=== PATIENT | female | born 1975 | race African-American/Black ===

== ENCOUNTER 2017-10-30 14:57 | Outpatient (CLI) | payer BC | END 2017-10-30 14:58 | disposition home or self-care (01) | LOC: BICMAMMO 14:57 | PROVIDERS: ATTEND Family Medicine | DX: Z12.31 Encounter for screening mammogram for malignant neoplasm of breast (principal); Z80.3 Family history of malignant neoplasm of breast; N64.89 Other specified disorders of breast | CPT/HCPCS: 77063; 77067 ==

== ENCOUNTER 2017-11-06 16:32 | Outpatient (CLI) | payer BC | END 2017-11-06 16:33 | disposition home or self-care (01) | LOC: BICRAD 16:32 | PROVIDERS: ATTEND Internal Medicine Rheumatology | DX: M19.071 Primary osteoarthritis, right ankle and foot (principal); M19.072 Primary osteoarthritis, left ankle and foot; M77.32 Calcaneal spur, left foot ==

== ENCOUNTER 2017-11-08 09:40 | Outpatient (CLI) | payer BC | END 2017-11-08 09:41 | disposition home or self-care (01) | LOC: BICMAMMO 09:40 | PROVIDERS: ATTEND Family Medicine | DX: N63.20 Unspecified lump in the left breast, unspecified quadrant (principal); R92.8 Other abnormal and inconclusive findings on diagnostic imaging of breast | CPT/HCPCS: G0279 ==

== ENCOUNTER 2017-12-19 13:18 | Outpatient (CLI) | payer OTHER | END 2017-12-19 13:19 | disposition home or self-care (01) | LOC: DTY/OP 13:18 | PROVIDERS: ATTEND Specialist | DX: Z01.818 Encounter for other preprocedural examination (principal); E66.01 Morbid (severe) obesity due to excess calories | CPT/HCPCS: 97802 ==

== ENCOUNTER 2018-03-06 16:23 | Outpatient (CLI) | payer BC ==
[2018-03-06 17:59] LABS: BHCG - Serum Negative (NEGATIVE); Pregs Control Background? CLEAR/WHITE (CLR/WHITE); Pregs Control Bar Appear? YES (CONTROL BAR)
== END 2018-03-06 16:24 | disposition home or self-care (01) ==
LOC: LABBT 16:23
PROVIDERS: ATTEND Specialist
DX: Z01.818 Encounter for other preprocedural examination (principal); E66.01 Morbid (severe) obesity due to excess calories
CPT/HCPCS: 84703; 93005; 93010

== ENCOUNTER 2018-03-07 11:15 | Inpatient (IN) | payer BC ==
[2018-03-06 16:39] VITALS: BMI 42.9
[2018-03-11] MEDS ORDERED: Ondansetron HCl/PF 4 MG/2 ML Vial ONE (07:19)
[2018-03-11] MEDS ORDERED: Glycopyrrolate 0.2 MG/ML 5 ML SYRINGE ONE (07:19)
[2018-03-11] MEDS ORDERED: PROPOFOL 200 MG/20 ML VIAL ONE (07:19)
[2018-03-11] MEDS ORDERED: Lidocaine 1% PF 5 ML VIAL ONE (07:19)
[2018-03-11] MEDS ORDERED: Ketorolac Tromethamine 30 MG/ML VIAL ONE (08:35)
[2018-03-11] MEDS ORDERED: Heparin 5,000 UNITS/ML VIAL ONE (08:36)
[2018-03-11] MEDS ORDERED: Scopolamine 1.5 mg/72 hour Patch ONE (08:36)
[2018-03-11] MEDS ORDERED: cefOXitin 2 GM in Sodium Chloride 0.9% 100 ML IVPB SCH (08:45)
[2018-03-11] MEDS ORDERED: Bupivacaine/Epinephrine 0.25% 30 ML VIAL ONE (09:10)
[2018-03-11] MEDS ORDERED: Fentanyl 250 MCG/5 ML VIAL ONE (09:12)
[2018-03-11] MEDS ORDERED: HYDROmorphone 0.5 MG/0.5 ML SYRINGE ONE (09:12)
[2018-03-11] MEDS ORDERED: Midazolam HCl 2 mg/2 ml Vial ONE (09:21)
[2018-03-11] MEDS ORDERED: Promethazine HCl 25 MG/ML VIAL ONE (11:14)
[2018-03-11] MEDS ORDERED: Promethazine HCl 25 MG/ML VIAL SLOW IVP PRN (11:14)
[2018-03-11] MEDS ORDERED: Promethazine HCl 25 MG/ML VIAL IM PRN ×2 (11:14→12:29)
[2018-03-11] MEDS ORDERED: HYDROmorphone 2 MG/ML VIAL SLOW IVP PRN (11:14)
[2018-03-11] MEDS ORDERED: Fentanyl 100 MCG/2 ML VIAL ONE (11:25)
--- NOTE | 2018-03-11 11:59 | OP ---
DATE OF PROCEDURE: 03/11/2018 PREOPERATIVE DIAGNOSIS: Morbid obesity. POSTOPERATIVE DIAGNOSIS: Morbid obesity. OPERATION PERFORMED: Laparoscopic sleeve gastrectomy using the ViSiGi device. SURGEON: Yrn Howard M.D. ANESTHESIA: General endotracheal. INDICATIONS: The patient is a 42-year-old morbidly obese black female. She has undergone preoperative evaluation and education and presents at this time for surgery. OPERATIVE PROCEDURE IN DETAIL: Informed consent was obtained. The patient was taken to the operating room where general endotracheal anesthesia was obtained with the patient in supine position. Abdomen was clipped of hair, prepped with ChloraPrep, and draped in sterile fashion. Local anesthetic was infiltrated using 0.25% Marcaine with epinephrine and a 5 mm supraumbilical incision was created through which a Veress needle was passed into the peritoneal cavity and pneumoperitoneum established using carbon dioxide up to a pressure of 15 mmHg. A 5 mm trocar port was passed through this same incision. Laparoscopic camera was passed through this port. Under direct vision, 4 additional laparoscopic ports were placed including bilateral subcostal 5 mm ports, a right paramedian 12 mm port, and a left paramedian 15 mm port. A 5 mm epigastric incision was created through which Nathansen retractor was passed into the abdominal cavity and used to retract the left lobe of the liver. The pylorus was identified. Beginning 5 cm proximal to the pylorus, the omental and vascular tissue was dissected away from the greater curvature of the stomach in an ascending fashion using the Ligasure device. Hemostasis was maintained. The short gastric vessels were divided in a similar fashion. Posterior gastric adhesions were divided as well. The angle of His was mobilized and the left iliana of the diaphragm was dissected as well. Once complete gastric mobilization was obtained, a 36 Indian Visigi was passed by Anesthesia through the stomach down to the level of the pylorus and placed to suction. This was used as a guide for the subsequent gastrectomy. The gastrectomy was performed using several firings of the Blain stapler, initially using a green load followed by a gold load and a series of blue loads to complete the resection. Great care was taken to avoid narrowing of the incisura or the gastroesophageal junction. Once the stomach was completely transected, the excised portion was removed through the 15 mm port site. The fascia was closed at that location using a vawxje-sl-pdjni suture of 0 Vicryl using a GraNee needle. The stomach was insufflated with the Visigi with no evidence of leak. The Visigi was then removed. The staple line was inspected for hemostasis. Hemostasis obtained using electrocautery and/or Hemoclips as necessary. All irrigant from within the abdomen was aspirated. The Nathansen retractor and all ports were removed under direct vision. Pneumoperitoneum was carefully evacuated. Quarter percent Marcaine with epinephrine was infiltrated in each port site and skin edges approximated with 4-0 Monocryl subcuticular suture. Dermabond was placed externally. There were no complications. The patient tolerated the procedure well and was taken to recovery room in stable condition. FINDINGS: The patient had some degree of a fatty liver, but this is clearly improved with a preoperative weight loss. There were no intra-abdominal adhesions or abnormal anatomy. There was essentially no blood loss during the course of the operation. There was some minor oozing along the staple line that was quickly controlled with application of Hemoclips. There was also some bleeding from the tip of the underside of the left lobe of the liver. This was controlled using combination of electrocautery and Chanell powder. There was no bleeding at the end of the case. There were no complications. The patient tolerated the procedure well and was taken to recovery in stable condition. MIRTA
[2018-03-11] MEDS ORDERED: Morphine 4 MG/ML Carpuject SLOW IVP PRN (12:29)
[2018-03-11] MEDS ORDERED: Dextrose 50% Abboject 50 ML SYRINGE SLOW IVP PRN (12:29)
[2018-03-11] MEDS ORDERED: Dextrose 5% in Water 1,000 ML IV PRN (12:29)
[2018-03-11] MEDS ORDERED: Insulin Regular 300 UNITS/3 ML VIAL SC PRN (12:29)
[2018-03-11] MEDS ORDERED: diphenhydrAMINE 50 MG/ML VIAL IVP PRN (12:29)
[2018-03-11] MEDS ORDERED: hydrALAZINE 20 MG/ML VIAL SLOW IVP PRN (12:29)
[2018-03-11] MEDS ORDERED: Morphine 4 MG/ML VIAL IV PRN ×2 (12:43→12:45)
[2018-03-11] MEDS: 1/2 NS w/KCL 20 mEq 1,000 ML IV SCH ×2 (13:52→20:27)
[2018-03-11] MEDS: Morphine 4 MG/ML VIAL IV PRN ×2 (13:53→20:16)
[2018-03-11] MEDS: Ondansetron HCl/PF 4 MG/2 ML Vial IVP PRN (16:01)
[2018-03-11] MEDS: Ketorolac Tromethamine 30 MG/ML VIAL IVP SCH (16:45)
[2018-03-11] MEDS ORDERED: Enoxaparin Sodium 40 MG/0.4 ML SYRINGE SC SCH (21:00)
[2018-03-12] MEDS: Ketorolac Tromethamine 30 MG/ML VIAL IVP SCH ×3 (00:01→12:31)
[2018-03-12] MEDS: Hydrocodone-Acetamin 15 ML UDCUP PO PRN ×3 (00:27→10:07)
[2018-03-12] MEDS: Ondansetron HCl/PF 4 MG/2 ML Vial IVP PRN (01:05)
[2018-03-12] MEDS: 1/2 NS w/KCL 20 mEq 1,000 ML IV SCH ×2 (05:43→12:32)
[2018-03-12 06:02] LABS: #Lymphocytes 0.9 thou/uL (1.20-3.40); #Monocytes 0.5 thou/uL (0.11-0.59); %Basophils 0.4 % (0.0-1.0); %Eosinophils 0.6 % (0.0-10.0); %Lymphocytes 20.2 % (21.0-51.0); %Monocytes 11.7 % (0.0-10.0); Mean Corpuscular HGB CONC 31.8 g/dL (32.0-36.0); Mean Corpuscular Hemoglobin 24.8 pg (27.0-31.0); Mean Corpuscular Volume 77.7 fl (81.0-99.0); Platelet Count 214 thou/uL (130-400); RBC Distribution Width 15.7 % (11.5-14.5); Red Blood Cell (RBC) Count 4.04 mill/uL (4.20-5.40); White Blood Cell (WBC) Count 4.5 thou/uL (4.8-10.8)
[2018-03-12 06:13] LABS: Anion Gap 8 mmol/L (10-20); BUN (Urea Nitrogen) 5 mg/dL (7.0-18.7); Calc. Creatinine Clearance 188 mL/min (70-130); Calcium 8.3 mg/dL (7.8-10.44); Carbon Dioxide 25 mmol/L (22-29); Chloride 106 mmol/L (98-107); Estimated GFR-MDRD Greater than 90; Glucose 109 mg/dL (70-105); Potassium 3.9 mmol/L (3.5-5.1); Sodium 135 mmol/L (136-145)
[2018-03-12 07:26] VITALS: BP 146/83
[2018-03-12] MEDS ORDERED: Pantoprazole 40 MG VIAL IVP SCH (09:00)
[2018-03-12] MEDS ORDERED: TACROLIMUS 0.1% TOP PRN (09:46)
[2018-03-12] MEDS ORDERED: Lorazepam 1 MG TAB PO PRN (09:48)
[2018-03-12] MEDS ORDERED: Fluocinonide 0.05% Ointment 15 gm Tube TOP PRN (09:51)
[2018-03-12] MEDS ORDERED: Fluticasone Propionate Nasal Spray 16 gm Bottle NASAL SCH (10:00)
[2018-03-12] MEDS ORDERED: Aspirin 81 mg Enteric Coated Tablet PO SCH (10:00)
[2018-03-12 11:59] VITALS: TEMP 98.9
--- NOTE | 2018-03-12 14:09 | DIS ---
DATE OF ADMISSION: 03/11/2018 DATE OF DISCHARGE: 03/12/2018 ADMISSION DIAGNOSIS: Morbid obesity. DISCHARGE DIAGNOSIS: Morbid obesity. PROCEDURES PERFORMED: Laparoscopic sleeve gastrectomy. SURGEON: Yrn Howard M.D. ADMISSION HISTORY: The patient is a 42-year-old black female. She has multiple medical problems inc luding Sjogren's syndrome, anxiety, and coagulation disorder. She has undergone extensive preoperati ve evaluation and education presents at this time for her weight loss surgery. HOSPITAL COURSE: She underwent uneventful surgery on the day of admission. On postoperative day #1, she had minimal complaints of pain. She was afebrile with normal vital signs. She tolerated her li quids and advance these appropriately in order to be discharged. Her laboratory studies revealed no significant abnormality. Her hemoglobin level was 10.0, down from 11.4. She was discharged home with instructions regarding, which of her medication she should continue. Kierra pimentel was given a prescription for hydrocodone elixir and instructed regarding dietary progression over t he next couple of weeks. She will remain on liquids during this time. She will follow up with edmund guerrero in 10-14 days.
[2018-03-12] MEDS ORDERED: metFORMIN 500 MG TAB PO SCH (17:00)
[2018-03-12] MEDS ORDERED: Colchicine 0.6 MG TAB PO SCH (21:00)
[2018-03-12] MEDS ORDERED: DULoxetine 60 MG CAP PO SCH (21:00)
[2018-03-12] MEDS ORDERED: Hydroxychloroquine Sulfate 200 MG TAB PO SCH (21:00)
[2018-03-12] MEDS ORDERED: EVOXAC PO SCH (21:00)
[2018-03-12] MEDS ORDERED: busPIRone HCl 10 MG TAB PO SCH (21:00)
[2018-03-12] MEDS ORDERED: traMADol HCl 50 MG TAB PO SCH (21:00)
[2018-03-12] MEDS ORDERED: Lisinopril 10 MG TAB PO SCH (21:00)
[2018-03-13] MEDS ORDERED: predniSONE 1 MG TAB PO SCH (09:00)
[2018-03-13] MEDS ORDERED: Amlodipine 5 MG TAB PO SCH (09:00)
[2018-03-13] MEDS ORDERED: Venlafaxine HCl 25 MG TAB PO SCH (09:00)
[2018-03-13] MEDS ORDERED: Rivaroxaban 10 MG TAB PO SCH (09:00)
[2018-03-15] MEDS ORDERED: Doxycycline 100 MG CAP PO SCH (09:00)
== END 2018-03-12 13:20 | disposition home or self-care (01) | DRG 620 ==
LOC: SURG A 03-11 07:57
PROVIDERS: ADMIT Specialist; ATTEND Specialist
PROC: 0DB64Z3 Excision of Stomach, Percutaneous Endoscopic Approach, Vertical (ICD-10-PCS; principal; 2018-03-11)
DX: E66.01 Morbid (severe) obesity due to excess calories (principal); D68.9 Coagulation defect, unspecified; Z68.41 Body mass index [BMI] 40.0-44.9, adult; K76.0 Fatty (change of) liver, not elsewhere classified; M35.00 Sjogren syndrome, unspecified; F41.9 Anxiety disorder, unspecified; Z79.899 Other long term (current) drug therapy; Z79.891 Long term (current) use of opiate analgesic; Z79.51 Long term (current) use of inhaled steroids; Z79.84 Long term (current) use of oral hypoglycemic drugs; Z79.01 Long term (current) use of anticoagulants; E11.9 Type 2 diabetes mellitus without complications; G47.33 Obstructive sleep apnea (adult) (pediatric); I10 Essential (primary) hypertension; M32.9 Systemic lupus erythematosus, unspecified; Z87.442 Personal history of urinary calculi; Z71.3 Dietary counseling and surveillance; M79.7 Fibromyalgia; Z91.012 Allergy to eggs; Z91.040 Latex allergy status; Z91.018 Allergy to other foods
CPT/HCPCS: 36415; 36416; 80048; 85025; 88307; 88312; 94760; C9113; J0131; J0694; J1170; J1644; J1650; J1815; J1885; J2001; J2250; J2270; J2405; J2550; J2704; J3010; J7050

== ENCOUNTER 2018-04-24 13:18 | Outpatient (CLI) | payer BC ==
--- NOTE | 2018-04-24 15:55 | RAD ---
UPPER GI: 04/24/18 HISTORY: Nausea. Abdominal pain. Vomiting. Recent bariatric surgery. FINDINGS: Single column contrast evaluation shows postoperative changes of the stomach consistent with recent b ariatric procedure. There is some delay in emptying of the distal esophagus to the stomach with large amount of gastroesophageal reflux apparent. No propulsive tertiary type contractions were visible. C ontrast immediately passed into the duodenum without obstruction. No extraluminal extension of contra st is apparent. Hemostasis clips are present throughout the upper mid abdomen from recent surgery. IMPRESSION: Bariatric surgical changes of the stomach. Large amount of gastroesophageal reflux with moderate tert iary contractions. No evidence of obstruction or leak. POS: [facility]
== END 2018-04-24 13:19 | disposition home or self-care (01) ==
LOC: RAD 13:18
PROVIDERS: ATTEND Specialist
DX: R11.0 Nausea (principal); K21.9 Gastro-esophageal reflux disease without esophagitis; Z98.890 Other specified postprocedural states
CPT/HCPCS: 74247

== ENCOUNTER 2018-06-20 12:57 | Emergency (ER) | payer BC ==
[2018-06-20 14:15] LABS: Bilirubin Negative (Negative); Blood, Urine Negative (Negative); Clarity Clear (Clear); Glucose, Urine (Dipstick) Negative (Negative); Leukocyte Negative (Negative); Nitrite Negative (Negative); Protein, Urine (Dipstick) 30 mg/dL (Neg-Trace); Urobilinogen 0.2 mg/dL (0.2-1.0)
[2018-06-20 14:18] LABS: Specific Gravity, Urine 1.018 (1.002-1.036)
[2018-06-20 14:20] LABS: Pregnancy Test - Urine (BHCG) Negative (Negative); Pregu Control Background? CLEAR/WHITE (CLR/WHITE); Pregu Control Bar Appear? YES (CONTROL BAR); Specific Gravity 1.018 (1.002-1.036)
[2018-06-20 14:26] LABS: Amphetamine Not Detected (NotDetected); Barbiturates Screen Not Detected (NotDetected); Benzodiazepine Screen Detected (NotDetected); Cocaine Metabolite Screen Not Detected (NotDetected); Medtox Control Line Valid? VALID (VALID); Methadone Not Detected (NotDetected); Methamphetamine Not Detected (NotDetected); Opiate Screen Not Detected (NotDetected); Oxycodone Screen Not Detected (NotDetected); Phencyclidine (PCP) Not Detected (NotDetected); THC/Cannabinoid Screen Not Detected (NotDetected); Tricyclic Screen Not Detected (NotDetected)
[2018-06-20 14:30] LABS: RBC/HPF 0-3 HPF (0-3); Squamous Epithelial 0-3 HPF (0-3); WBC/HPF 0-3 HPF (0-3)
[2018-06-20 14:31] LABS: Bacteria/HPF 1+ HPF (None Seen); Hyaline Casts/LPF NONE SEEN LPF (0-3 Hyaline)
[2018-06-20 14:53] LABS: ALT (SGPT) 47 U/L (8-55); AST (SGOT) 34 U/L (5-34); Albumin 3.7 g/dL (3.5-5.0); Alkaline Phosphatase 74 U/L (40-150); Anion Gap 12 mmol/L (10-20); BUN (Urea Nitrogen) 6 mg/dL (7.0-18.7); Bilirubin, Total 0.4 mg/dL (0.2-1.2); CK (CPK) 52 U/L (29-168); Calc. Creatinine Clearance 0 mL/min (70-130); Calcium 9.2 mg/dL (7.8-10.44); Carbon Dioxide 24 mmol/L (22-29); Chloride 108 mmol/L (98-107); Estimated GFR-MDRD Greater than 90; Globulin 2.8 g/dL (2.4-3.5); Glucose 121 mg/dL (70-105); Lipase 21 U/L (8-78); Potassium 3.6 mmol/L (3.5-5.1); Protein, Total 6.5 g/dL (6.0-8.3); Sodium 140 mmol/L (136-145)
[2018-06-20 14:54] LABS: Band 5 % (5-11); Elliptocytes SLIGHT = 2-5 cells (100X) (0-1/hpf); Hemoglobin 10.2 g/dL (12.0-16.0); Hypochromia SLIGHT = 6-15 cells (100X) (0-5/hpf); Lymphocytes 25 % (21-51); MDiff Complete? YES; Mean Corpuscular HGB CONC 30.1 g/dL (32.0-36.0); Mean Corpuscular Hemoglobin 22.3 pg (27.0-31.0); Mean Corpuscular Volume 73.9 fL (78.0-98.0); Mean Platelet Volume 6.3 fL (7.4-10.4); Microcytosis SLIGHT = 6-15 cells (100X) (0-5/hpf); Monocytes 9 % (0-10); Neutrophil 57 % (42-75); PLT Morphology Comment Appears Adequate; Platelet Count 234 thou/uL (130-400); RBC Distribution Width 13.3 % (11.5-14.5); Reactive Lymphocytes 4 % (0-10); Schistocytes SLIGHT = 2-5 cells (100X) (0-1/hpf); Target Cells SLIGHT = 2-5 cells (100X) (0-1/hpf); White Blood Cell (WBC) Count 3.6 thou/uL (4.8-10.8)
[2018-06-20 14:56] LABS: CKMB 0.6 ng/mL (0-6.6); Troponin I Less than 0.010 ng/mL (< 0.028)
--- NOTE | 2018-06-20 15:13 | RAD ---
PORTABLE CHEST 1 VIEW: Date: 06/20/18 Time: 1422 hours HISTORY: Chest pain. FINDINGS: Comparison made with exam of 08/23/16. The heart size is normal. No lobar consolidation, pneumothoraces, volodymyr pulmonary edema, or pleural e ffusions are seen. IMPRESSION: No radiographic evidence of acute cardiopulmonary process. POS: OFF
== END 2018-06-20 15:19 | disposition home or self-care (01) ==
LOC: SCSER 12:57
DX: R60.0 Localized edema (principal); I10 Essential (primary) hypertension; M35.00 Sjogren syndrome, unspecified; F41.9 Anxiety disorder, unspecified; Z86.718 Personal history of other venous thrombosis and embolism; Z87.442 Personal history of urinary calculi; Z79.899 Other long term (current) drug therapy; Z79.01 Long term (current) use of anticoagulants; Z79.891 Long term (current) use of opiate analgesic; Z86.711 Personal history of pulmonary embolism
CPT/HCPCS: 36415; 71045; 80053; 80306; 81003; 81015; 81025; 82553; 83690; 83880; 84484; 85025; 85379; 93005

== ENCOUNTER 2018-12-02 13:29 | Outpatient (CLI) | payer BC ==
--- NOTE | 2018-12-02 15:26 | ULT ---
LEFT BREAST ULTRASOUND: Date: 12/02/18 HISTORY: Follow-up left breast mass. FINDINGS: Comparison made with left breast ultrasound of 11/08/17. Correlation is made with mammogram from same date. The intraductal mass at the 4 o'clock position of the left breast is stable and measures about 6.0 mm . IMPRESSION: BI-RADS Category 3 - Probably benign findings. 6 month follow-up left breast ultrasound is recommende d. The facility will notify patient of need for additional imaging services. POS: OFF
== END 2018-12-02 13:30 | disposition home or self-care (01) ==
LOC: BICMAMMO 13:29
PROVIDERS: ATTEND Internal Medicine Medical Oncology
DX: R92.8 Other abnormal and inconclusive findings on diagnostic imaging of breast (principal); Z80.3 Family history of malignant neoplasm of breast
CPT/HCPCS: 77066; G0279

== ENCOUNTER 2018-12-23 07:49 | Outpatient (CLI) | payer BC ==
--- NOTE | 2018-12-23 12:03 | NM ---
RADIONUCLIDE GASTRIC EMPTYING SCAN: HISTORY: A 43-year-old female with nausea and vomiting, unspecified. The patient had gastric sleeve surgery i February 2018 and, since then, has lost 120 pounds. RADIOPHARMACEUTICAL: Technetium 99m sulfur colloid 2 millicuries administered orally, in oatmeal. FINDINGS: There is 98% emptying of the ingested gastric contents at 1 hour. The calculated gastric emptying half-time measures 20 minutes. IMPRESSION: Rapid gastric emptying. POS: C
== END 2018-12-23 07:50 | disposition home or self-care (01) ==
LOC: NM 07:49
PROVIDERS: ATTEND Specialist
DX: R11.2 Nausea with vomiting, unspecified (principal)
CPT/HCPCS: 78264; A9541

== ENCOUNTER 2019-01-26 07:05 | Outpatient (CLI) | payer BC ==
[2019-01-26] MEDS ORDERED: Iopamidol 370 76% 100 ML VIAL ONE (09:00)
--- NOTE | 2019-01-26 10:31 | CT ---
CT ABDOMEN AND PELVIS: Date: 01/26/19 COMPARISON: 11/17/12. HISTORY: Right lower quadrant pain. TECHNIQUE: Axial CT imaging at 5 mm intervals from lung bases through the pubic symphysis with intravenous and o ral contrast. Coronal reformatted imaging obtained. FINDINGS: The visualized lung bases are unremarkable. No free intraperitoneal air or fluid is seen. There is a lesion within the central aspect of the liver measuring 3.6 cm in greatest AP dimension. I t demonstrates areas of peripheral nodular enhancement, most consistent with a benign hemangioma. The re is a focal area of hypodensity within the ventral aspect of the liver adjacent to the falciform li gament anteriorly which may represent a 1.0 cm nonspecific hypodense lesion or a focal area of fatty infiltration. There is a tiny hypodense lesion within the posterior aspect of the right lobe of the l iver measuring 5.0 mm, too small to characterize. Limited assessment of the gallbladder appears unremarkable. There is a tiny hypodensity in the superi or aspect of the spleen measuring 3.0 mm, too small to characterize. There is a gastric suture line p resent. There is a subtle low density lesion within the tail of the pancreas measuring in the 4.0 mm range, w hich appears grossly unchanged when compared to prior CT. Pancreas otherwise unremarkable. Bilateral adrenal glands are unremarkable. There is an IVC filter present. There is a nonobstructing stone seen in the lower pole of the right kidney measuring 3.0 mm. There is no evidence for hydronephrosis on either side. There are numerous prominent rim-calcified lesions within an enlarged and lobulated uterus, stable, s uggesting numerous rim-calcified uterine fibroids. There is no evidence for bowel inflammatory change or bowel obstruction. The appendix appears grossly unremarkable. The vascular structures of the abdomen/pelvis demonstrate no acute findings. No enlarged retroperiton eal, pelvic, or mesenteric lymph nodes. Review of the osseous structures demonstrates multilevel lower lumbar spine facet hypertrophic change . There is no worrisome lytic or blastic bone lesions. IMPRESSION: There are numerous incidental findings as detailed above. No acute findings are noted. Please see abo ve discussion. POS: [facility]
== END 2019-01-26 07:06 | disposition home or self-care (01) ==
LOC: SCSCT 07:05
PROVIDERS: ATTEND Family Medicine
DX: R10.31 Right lower quadrant pain (principal); Z98.84 Bariatric surgery status
CPT/HCPCS: 36415; 74177; 82040; 84425; Q9967

== ENCOUNTER 2019-02-18 16:07 | Outpatient (CLI) | payer BC ==
--- NOTE | 2019-02-18 17:12 | MRI ---
MRI lumbar spine noncontrast: DATE: 02/18/2019 HISTORY: 43-year-old female with low back pain and right lumbar radiculopathy COMPARISON: None FINDINGS: For the purposes of this report, it will be assumed that there are 5 lumbar-type vertebrae. There is a slight lateral curvature. Alignment is normal otherwise. Vertebral body heights are mainta ined. Bone marrow signal is normal. There is no central spinal canal stenosis at any level. No high-grade neural foraminal stenosis at any level. No nerve root impingement at any level. No focal s ignificant major focal disc herniation. Disc desiccation and mild to moderate disc space narrowing at L5-S1 where there is a mild, shallow central and left paracentral disc protrusion. Conus medullari s terminates at L1. Cauda equina is arranged in a symmetrical, normal distribution throughout the thecal sac. Perivertebral soft tissues demonstrate no major pathology. Moderate right-sided facet DJD at L4-5. IMPRESSION: 1) right-sided moderate facet osteoarthrosis at L4-5. 2) mild degenerative disc changes at L5-S1. 3) mild lateral curvature. 4.) otherwise normal.
== END 2019-02-18 16:08 | disposition home or self-care (01) ==
LOC: SCSMRI 16:07
PROVIDERS: ATTEND Family Medicine
DX: M54.5 Low back pain (principal); M47.816 Spondylosis without myelopathy or radiculopathy, lumbar region; M51.37 Other intervertebral disc degeneration, lumbosacral region; M43.8X6 Other specified deforming dorsopathies, lumbar region
CPT/HCPCS: 72148

== ENCOUNTER 2019-03-17 09:46 | Outpatient (CLI) | payer BC ==
[~2019-03-17 09:46] MED LIST: Iopamidol 370 76% 100 ML VIAL ONE
--- NOTE | 2019-03-17 10:39 | CT ---
Pre and postcontrast enhanced images of abdomen and pelvis. HISTORY: Pelvic pain with hematuria. Pre and postcontrast enhanced images of the abdomen pelvis obtained. The lung bases are unremarkable. There are right and left hepatic lobe hemangiomas. The gallbladder is unremarkable. The spleen is unremarkable. Pancreas unremarkable. Gastric surgical cristian seen. Inferior vena caval filter is in place. Moderately dilated and thickened loops of small bowel seen concerning for enteritis. The kidneys demonstrate no significant evidence of masses. 1 mm lower pole right renal calculus is pr esent. No evidence of hydroureteronephrosis seen. The left ureter seen along its entire course. The right ur eter is somewhat delayed in opacification. Numerous calcified uterine fibroids seen. The urinary bladder is decompressed. IMPRESSION: Hepatic hemangiomas. Transcribed Date/Time: 03/17/2019 11:13 AM
== END 2019-03-17 09:47 | disposition home or self-care (01) ==
LOC: CT 09:46
PROVIDERS: ATTEND Urology
DX: R31.0 Gross hematuria (principal); D18.03 Hemangioma of intra-abdominal structures
CPT/HCPCS: 74178; Q9967

== ENCOUNTER 2019-03-30 11:00 | Day surgery (SDC) | payer BC ==
[2019-03-30] MEDS ORDERED: Iothalamate Meglumine 60% 50 ML VIAL FS ONE (11:31)
[2019-03-30] MEDS ORDERED: Fentanyl 100 MCG/2 ML VIAL ONE ×3 (11:33→13:49)
[2019-03-30] MEDS ORDERED: Promethazine HCl 25 MG/ML VIAL ONE (11:33)
[2019-03-30] MEDS ORDERED: Famotidine/PF 20 mg/2ml Vial ONE (11:33)
[2019-03-30 11:39] LABS: #Eosinphils 0.1 thou/uL (0.0-0.7); #Lymphocytes 1.4 thou/uL (1.20-3.40); #Monocytes 0.5 thou/uL (0.11-0.59); #Neutrophils 3.9 thou/uL (1.40-6.50); %Basophils 0.4 % (0.0-1.0); %Eosinophils 1.7 % (0.0-10.0); %Lymphocytes 23.9 % (21.0-51.0); %Monocytes 7.8 % (0.0-10.0); %Neutrophils 66.1 % (42.0-75.0); Hemoglobin 12.1 g/dL (12.0-16.0); Mean Corpuscular HGB CONC 31.9 g/dL (32.0-36.0); Mean Corpuscular Hemoglobin 25.2 pg (27.0-31.0); Mean Corpuscular Volume 78.9 fL (78.0-98.0); Mean Platelet Volume 10.5 fL (7.4-10.4); Platelet Count 259 thou/uL (130-400); RBC Distribution Width 14.4 % (11.5-14.5); Red Blood Cell (RBC) Count 4.79 mill/uL (4.20-5.40); White Blood Cell (WBC) Count 5.9 thou/uL (4.8-10.8)
[2019-03-30 11:45] LABS: PTT 30.2 SEC (22.9-36.1); Prothrombin Time 12.8 SEC (12.0-14.7)
[2019-03-30 11:48] LABS: BHCG - Serum Indeterminate (NEGATIVE); Pregs Control Background? CLEAR/WHITE (CLR/WHITE); Pregs Control Bar Appear? YES (CONTROL BAR)
[2019-03-30] MEDS ORDERED: Midazolam HCl 2 mg/2 ml Vial ONE (11:51)
[2019-03-30 12:09] LABS: Anion Gap 13 mmol/L (10-20); BUN (Urea Nitrogen) 16 mg/dL (7.0-18.7); Calc. Creatinine Clearance 65 mL/min (70-130); Carbon Dioxide 26 mmol/L (22-29); Chloride 103 mmol/L (98-107); Estimated GFR-MDRD 68; Glucose 106 mg/dL (70-105); Potassium 3.9 mmol/L (3.5-5.1); Sodium 138 mmol/L (136-145)
--- NOTE | 2019-03-30 13:09 | RAD ---
RETROGRADE PYELOGRAM: Date: 03/30/19 HISTORY: Hematuria. FINDINGS: Ten images provided from a right-sided retrograde pyelogram. Clips in the left upper quadrant are not ed. There is an IVC filter present. Rim calcified structures in the pelvis suggest uterine fibroid disease. No persistent filling defects are seen within the opacified right ureter/renal collecting system. Tra nsient filling defects are noted within the proximal, mid, and distal right ureter, likely on the basis of air bubbles. Small mobile stones cannot be fully excluded in the proper clinical setting. IMPRESSION: Grossly unremarkable right retrograde pyelogram. Transcribed Date/Time: 03/30/2019 1:14 PM
--- NOTE | 2019-03-30 15:40 | OP ---
DATE OF PROCEDURE: 03/30/2019 PREOPERATIVE DIAGNOSES: Hematuria and right flank pain. POSTOPERATIVE DIAGNOSES: Hematuria, right flank pain, and small right ureteral orifice lesion. PROCEDURES PERFORMED: Cystoscopy, right retrograde, and right ureteral biopsies. ANESTHESIA: General. ESTIMATED BLOOD LOSS: Minimal. FINDINGS: The bladder was free of tumor from bodies or stone. Right at the right ureteral orifice, was little 2 mm bland lesion just on the superior lip of it. The retrograde study on the right side failed to show any evidence of persistent filling defect or obstruction. She did have numerous very tiny little crystals in her urine. No sizable stone in the bladder. She had excellent drainage of the right ureter after the retrograde study. We used a little cold cup biopsy just to remove this small little lesion, and we sent it off to Pathology. We watched it for few minutes and it stopped bleeding, so we did not cauterize it because of its proximity to the ureteral orifice. Stent was not placed and she had good efflux of urine across this after the little biopsy was done. DESCRIPTION OF PROCEDURE: Obtained written and verbal consent from the patient. After receiving some IV antibiotics and some steroids, she was taken to the operating suite. She was placed in the supine position on the treatment table. PlexiPulses were placed on her lower extremities and turned on. She was given a general anesthetic and oral obturator intubation. She was then placed in the dorsal lithotomy position, and sterilely prepped and draped for cystoscopy. The C-arm was moved into position for fluoroscopy. Cystoscopy was performed with a 22-Sinhala sheath. This was well lubricated and advanced under direct vision through the female urethra and into the urinary bladder with aid of a 30-degree lens and video camera and monitor. The bladder was filled and emptied number of times, this was again with both the 30 and the 70-degree lens. As mentioned, there were numerous tiny little stones on the floor of the bladder. None of them had any significant size. We noticed the tiny lesion on the right ureteral orifice. A 5-Sinhala cone-tipped catheter was filled with contrast. A wind turbine mechanic KUB was taken with the fluoroscopy unit. The Trail-tip catheter was placed about a centimeter into the right ureteral orifice and about 8 to 10 mL of contrast was injected in a retrograde manner showing a nondilated right ureter and collecting system that drained very well after the cone-tipped catheter was removed. We then used the small biopsy forceps to biopsy this little lesion off the right ureteral orifice. It bled for a little bit, but after 10 minutes, it had not bled at all. For this reason, it was not bovied. At this point, the bladder was drained. The instruments were removed. She was taken out of the dorsal lithotomy position, awakened, and extubated, taken by stretcher to recovery room. Job ID: [id number]
== END 2019-03-30 15:20 | disposition home or self-care (01) ==
LOC: SDC 11:00
PROVIDERS: ATTEND Urology
PROC: BT1D1ZZ Fluoroscopy of Right Kidney, Ureter and Bladder using Low Osmolar Contrast (ICD-10-PCS; principal; 2019-03-30)
PROC: 0TBB8ZX Excision of Bladder, Via Natural or Artificial Opening Endoscopic, Diagnostic (ICD-10-PCS; principal; 2019-03-30)
DX: N30.21 Other chronic cystitis with hematuria (principal); N21.0 Calculus in bladder; I10 Essential (primary) hypertension; K58.9 Irritable bowel syndrome, unspecified; Z88.6 Allergy status to analgesic agent; Z91.012 Allergy to eggs; Z91.040 Latex allergy status; Z91.018 Allergy to other foods; Z79.51 Long term (current) use of inhaled steroids; Z79.01 Long term (current) use of anticoagulants; Z79.84 Long term (current) use of oral hypoglycemic drugs; Z79.899 Other long term (current) drug therapy
CPT/HCPCS: 36415; 74420; 80048; 84703; 85025; 85610; 85730; 88305; 93005; 93010; C1758; J0690; J2250; J2550; J3010; Q9961; S0028

== ENCOUNTER 2019-08-19 16:46 | Outpatient (CLI) | payer BC ==
[2019-08-19 17:47] LABS: BHCG - Serum Negative (NEGATIVE); Pregs Control Background? CLEAR/WHITE (CLR/WHITE); Pregs Control Bar Appear? YES (CONTROL BAR)
--- NOTE | 2019-08-20 16:41 | EKG ---
Test Reason : Blood Pressure : / mmHG Vent. Rate : 093 BPM Atrial Rate : 093 BPM P-R Int : 142 ms QRS Dur : 062 ms QT Int : 362 ms P-R-T Axes : 052 037 006 degrees QTc Int : 450 ms Normal sinus rhythm Possible Inferior infarct , age undetermined Possible Anterolateral infarct , age undetermined Abnormal ECG Confirmed by ERICH WASSERMAN ([id number]) on 08/20/2019 4:40:40 PM Referred By: KAYLIN Confirmed By:ERICH WASSERMAN
== END 2019-08-19 16:47 | disposition home or self-care (01) ==
LOC: LABBT 16:46
PROVIDERS: ATTEND Neurological Surgery
DX: Z01.818 Encounter for other preprocedural examination (principal); G60.9 Hereditary and idiopathic neuropathy, unspecified
CPT/HCPCS: 84703; 93005; 93010

== ENCOUNTER 2019-08-24 08:21 | Day surgery (SDC) | payer BC ==
[2019-08-19 17:00] VITALS: BMI 25.8
--- NOTE | 2019-08-23 08:38 | HP ---
HISTORY OF PRESENT ILLNESS: Ms. Franco is a very pleasant 43-year-old woman, here today via referral from Dr. Rousseau for discussion of sural nerve biopsy as she has peripheral polyneuropathy manifesting as numbness and weakness with abnormal EMG. She has an extensive autoimmune history, and his request was sent here for discussion of this particular biopsy. PAST MEDICAL HISTORY: Significant for anemia, chronic pain syndrome, migraine headaches, hypertension, allergies, blood clots, fibromyalgia, Sjogren syndrome, Raynaud's, and lupus. PAST SURGICAL HISTORY: Gastric sleeve, lithotripsy, and inferior vena cava filter. CURRENT MEDICATIONS: 1. Plaquenil. 2. Prednisone. 3. BuSpar. 4. Sertraline. 5. Amlodipine. 6. Lisinopril. 7. Xarelto. ALLERGIES: LATEX, EGG WHITES, MUSHROOMS, AND NSAIDS. PHYSICAL EXAMINATION: The patient is alert and oriented x3. Gait is altered and slowed. She has weakness with dorsiflexion of the bilateral lower extremities. ASSESSMENT: Polyneuropathy. PLAN: met with the patient, reviewed her history and advocated for a right sural nerve biopsy. He explained to the patient the risks, benefits, and alternatives to the procedure. The patient expressed understanding and elected to move forward with surgery as discussed. I do believe the patient is mentally competent and capable of making medical decisions for herself. We will move forward with surgery as planned. Job ID: [id number]
[2019-08-24] MEDS ORDERED: Midazolam HCl 2 mg/2 ml Vial ONE (09:59)
[2019-08-24] MEDS ORDERED: Fentanyl 100 MCG/2 ML VIAL ONE (10:04)
--- NOTE | 2019-08-24 11:33 | OP ---
DATE OF PROCEDURE: 08/24/2019 MUTUAL FUND ACCOUNTANT: Giuseppe Morton PA-C INDICATION: Pain. DIAGNOSIS: Idiopathic peripheral neuropathy. PROCEDURES PERFORMED: Right sural nerve biopsy. ANESTHESIA: Local and TIVA. DESCRIPTION OF PROCEDURE: The patient was brought into the operating room and placed under general anesthesia. She was flipped from the supine to prone position. Her right distal extremity was prepped and draped up to the level of the knee. A linear incision was planned approximately 1-1/2 inches posterior to the lateral malleolus and was extended in a cephalad direction approximately 8 cm midway between the Achilles tendon and the lateral aspect of the leg. This area was infiltrated with Marcaine with epinephrine. After an appropriate pause, the incision was created. The superficial saphenous vein was identified and directly adjacent to that. The sural nerve was identified. It was carefully dissected and a 6-cm biopsy of the nerve was taken. It was placed in the sterile container and sent for pathologic analysis. The wound was then irrigated. Hemostasis was maintained. The wound was then closed in anatomic layers and a pressure dressing was applied. There were no known procedural complications. Job ID: [id number]
[2019-08-24] MEDS ORDERED: PROPOFOL 200 MG/20 ML VIAL ONE (15:23)
[2019-08-24] MEDS ORDERED: Ondansetron PF 4 MG/2 ML Vial ONE (15:23)
== END 2019-08-24 12:40 | disposition home or self-care (01) ==
LOC: SDC 08:21
PROVIDERS: ATTEND Neurological Surgery
PROC: 01B Peripheral Nervous System, Excision (ICD-10-PCS; principal; 2019-08-24)
DX: G60.9 Hereditary and idiopathic neuropathy, unspecified (principal); I10 Essential (primary) hypertension; M35.00 Sjogren syndrome, unspecified; I73.00 Raynaud's syndrome without gangrene; G89.4 Chronic pain syndrome; F32.9 Major depressive disorder, single episode, unspecified; G47.33 Obstructive sleep apnea (adult) (pediatric); K58.9 Irritable bowel syndrome, unspecified; M21.371 Foot drop, right foot; M21.372 Foot drop, left foot; M79.7 Fibromyalgia; Z79.899 Other long term (current) drug therapy; Z88.8 Allergy status to other drugs, medicaments and biological substances; Z91.012 Allergy to eggs; Z91.018 Allergy to other foods; Z91.040 Latex allergy status; Z98.84 Bariatric surgery status
CPT/HCPCS: 88305; 88325; J0690; J2250; J2405; J2704; J3010

== ENCOUNTER 2019-12-15 14:26 | Outpatient (CLI) | payer BC ==
--- NOTE | 2019-12-15 15:58 | ULT ---
LIMITED ULTRASOUND BILATERAL BREASTS: 12/15/19 HISTORY: Patient with previously seen mass in the left breast on prior ultrasound exam. Mammogram demonstrates larger sized retroareolar mass on the left with suggested dilated ducts retroareolar region right br east, and bloody nipple discharge was expressed with compression on mammographic evaluation. FINDINGS: Limited sonographic imaging of the retroareolar regions of each breast was performed. There is duct e ctasia in the retroareolar region of each breast with duct ectasia more prominent on the right. There are echogenic mass-like areas within the dilated ducts bilaterally which could be related to debris within the ducts. However, mass within the ducts could not be excluded as some of the areas of decrea sed echogenicity have a more mass-like appearance within the ducts bilaterally with largest area righ t breast measuring 18 mm x 8 mm with echogenic focus within dilated duct left breast measuring approx imately 9 mm. IMPRESSION: BIRADS 0: Incomplete: Need Additional Imaging Evaluation and/or Prior Mammograms for Comparison MRI bilateral breast is recommended for further evaluation. POS: OFF
--- NOTE | 2019-12-15 16:02 | MMO ---
Bilateral MAMMO Bilat Diag [facility]. CLINICAL HISTORY: Patient is 44 years old and is seen for diagnostic exam. The patient has the following family history of breast cancer: mother, at age 50. The patient has no personal history of cancer. The patient has a history of left Excisional Biopsy in March, - papilloma. VIEWS: The views performed were: bilateral craniocaudal with tomosynthesis; bilateral mediolateral oblique with tomosynthesis; and bilateral mediolateral with tomosynthesis. FILMS COMPARED: The present examination has been compared to prior imaging studies performed at [facility] on 11/08/2017, 12/02/2018 and 12/15/2019. This study has been interpreted with the assistance of computer-aided detection. MAMMOGRAM FINDINGS: The breasts are heterogeneously dense, which could obscure a lesion on mammography. Finding 1: Dilated ducts retroareolar region right breast. Ultrasound shows dilated ducts with echogenic material present which could represent debris. However, a few areas have a mass-like appearance. Finding 2: There is a round mass measuring 10 millimeters with circumscribed margins seen in the left breast. Ultrasound shows dilated ducts with echogenic material in the ducts which could represent debris. However, a few echogenic areas have a mass-like appearance. IMPRESSION: FINDING 1: FINDING IN THE RIGHT BREAST REQUIRES ADDITIONAL EVALUATION. BREAST MRI IS RECOMMENDED. FINDING 2: MASS IN THE LEFT BREAST REQUIRES ADDITIONAL EVALUATION. BREAST MRI IS RECOMMENDED. THE RESULTS OF THIS EXAM WERE SENT TO THE PATIENT. ACR BI-RADS Category 0 - Incomplete: Need additional imaging evaluation. [facility] will notify the patient of the need for additional imaging services. MAMMOGRAPHY NOTE: 1. A negative mammogram report should not delay a biopsy if a dominant of clinically suspicious mass is present. 2. Approximately 10% to 15% of breast cancers are not detected by mammography. 3. Adenosis and dense breasts may obscure an underlying neoplasm. Reported by: MARCELINA PHAM MD Electonically Signed: [id number]
--- NOTE | 2019-12-16 07:57 | ULT ---
LIMITED ULTRASOUND BILATERAL BREASTS 12/15/19 HISTORY: Patient with previously seen mass in the left breast on prior ultrasound exam. Mammogram demonstrates larger sized retroareolar mass on the left with suggested dilated ducts retroareolar region right breast, and bloody nipple discharge was expressed with compression on mammographic evaluation. FINDINGS: Limited sonographic imaging of the retroareolar regions of each breast was performed. There is duct e ctasia in the retroareolar region of each breast with duct ectasia more prominent on the right. There are echogenic mass-like areas within the dilated ducts bilaterally which could be related to de bris within the ducts. However, mass within the ducts could not be excluded as some of the areas of decreased echogenicity have a more mass-like appearance within the ducts bilaterally with largest area right breast measuring 18 mm x 8 mm with echogenic foc us within dilated duct left breast measuring approximately 9 mm. IMPRESSION: BIRADS 0: Incomplete: Need Additional Imaging Evaluation and/or Prior Mammograms for Comparison MRI bilateral breast is recommended for further evaluation. Transcribed Date/Time: 12/16/2019 7:57 AM
== END 2019-12-15 14:27 | disposition home or self-care (01) ==
LOC: BICMAMMO 14:26
PROVIDERS: ATTEND Family Medicine
DX: R92.8 Other abnormal and inconclusive findings on diagnostic imaging of breast (principal); N63.20 Unspecified lump in the left breast, unspecified quadrant
CPT/HCPCS: 77066; G0279

== ENCOUNTER 2019-12-25 14:30 | Outpatient (CLI) | payer BC ==
--- NOTE | 2019-12-25 17:42 | MRI ---
MRI OF THE BILATERAL BREAST WITHOUT AND WITH CONTRAST: 12/25/19 COMPARISON: Bilateral breast ultrasound 12/15/19. HISTORY: Abnormal mammogram with bloody nipple discharge. Possible mass is seen within dilated ducts in the br east. TECHNIQUE: Multiplanar and multisequence MR images were obtained in the bilateral breast without and with IV con trast. FINDINGS: Scattered fibroglandular to heterogeneously dense breast parenchyma is seen. Mild background parenchy mal enhancement is seen. Before the administration of contrast, there are dilated ducts demonstrating high T1 signal. Because of this high T1 signal, evaluation throughout both breasts, right greater th an left, evaluation is limited. There appears to be a 1.3 cm enhancing mass in the retroareolar regio n of the right breast. This likely corresponds to the abnormality on ultrasound. This mass demonstrat es a plateau enhancement curve. Within the ducts in the left breast, there is a 4 mm nodule which ap pears to demonstrate enhancement. This is also in the subareolar location. This also demonstrates a p lateau type enhancement curve. No other obvious enhancing masses are seen in either breast. No axillary adenopathy is seen. No internal mammary lymph nodes are identified. The visualized anterior liver and osseous structures are unremarkable. 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 There are masses associated with the ducts bilaterally that are enha ncing. The findings on MRI confirm the findings on ultrasound. The bilateral breast masses should be biopsied with ultrasound guidance. BI-RADS 4: Suspicious Abnormality - Biopsy Should Be Considered Usually requires biopsy A bilateral breast biopsy is recommended using ultrasound guidance. Code T POS: C
== END 2019-12-25 14:31 | disposition home or self-care (01) ==
LOC: BICMRI 14:30
PROVIDERS: ATTEND Family Medicine
DX: R92.8 Other abnormal and inconclusive findings on diagnostic imaging of breast (principal); N60.42 Mammary duct ectasia of left breast; N60.41 Mammary duct ectasia of right breast; N63.20 Unspecified lump in the left breast, unspecified quadrant; N63.10 Unspecified lump in the right breast, unspecified quadrant
CPT/HCPCS: 82565; A9577; C8908

== ENCOUNTER 2019-12-31 14:31 | Outpatient (CLI) | payer BC ==
--- NOTE | 2019-12-31 14:58 | MMO ---
Right Breast MAMMO Unilat Diag DDI RT. CLINICAL HISTORY: Patient is 44 years old and is seen for breast biopsy. The patient has the following family history of breast cancer: mother, at age 50. The patient has no personal history of cancer. 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 VIEWS: The views performed were: right craniocaudal and right mediolateral oblique. FILMS COMPARED: The present examination has been compared to prior imaging studies performed at [facility] on 12/15/2019 and 12/25/2019. This study has been interpreted with the assistance of computer-aided detection. MAMMOGRAM FINDINGS: The breast is heterogeneously dense, which could obscure a lesion on mammography. There is a new biopsy clip seen in the anterior central region of the right breast. IMPRESSION: NEW BIOPSY CLIP IN THE RIGHT BREAST IS CONFIRMED UTILIZING POST PROCEDURE MAMMOGRAM. THE RESULTS OF THIS EXAM WERE SENT TO THE PATIENT. MAMMOGRAPHY NOTE: 1. A negative mammogram report should not delay a biopsy if a dominant of clinically suspicious mass is present. 2. Approximately 10% to 15% of breast cancers are not detected by mammography. 3. Adenosis and dense breasts may obscure an underlying neoplasm. Reported by: MENDOZA SUBRAMANIAN MD Electonically Signed: [id number]
== END 2019-12-31 14:32 | disposition home or self-care (01) ==
LOC: BICMAMMO 14:31
PROVIDERS: ATTEND Specialist
DX: N64.89 Other specified disorders of breast (principal); Z98.890 Other specified postprocedural states

== ENCOUNTER 2020-07-09 11:51 | Emergency (ER) | payer BC, OTHER ==
[~2020-07-09 11:51] MED LIST changes: -Iopamidol 370 76% 100 ML VIAL ONE; +Iopamidol-370 76% 500 ML 1 ML ONE
[2020-07-09] MEDS ORDERED: Ondansetron PF 4 MG/2 ML Vial ONE (12:29)
[2020-07-09 12:42] LABS: #Eosinphils 0.1 thou/uL (0.0-0.7); #Lymphocytes 1.1 thou/uL (1.20-3.40); #Monocytes 0.5 thou/uL (0.11-0.59); %Basophils 0.1 % (0.0-1.0); %Eosinophils 0.9 % (0.0-10.0); %Lymphocytes 16.8 % (21.0-51.0); %Monocytes 7.2 % (0.0-10.0); Hemoglobin 11.5 g/dL (12.0-16.0); Mean Corpuscular HGB CONC 31.5 g/dL (32.0-36.0); Mean Corpuscular Hemoglobin 26.7 pg (27.0-31.0); Mean Corpuscular Volume 84.9 fL (78.0-98.0); Mean Platelet Volume 8.1 fL (7.4-10.4); Platelet Count 324 thou/uL (130-400); RBC Distribution Width 14.3 % (11.5-14.5); White Blood Cell (WBC) Count 6.7 thou/uL (4.8-10.8)
[2020-07-09 13:13] LABS: ALT (SGPT) 34 U/L (8-55); AST (SGOT) 24 U/L (5-34); Albumin 3.9 g/dL (3.5-5.0); Alkaline Phosphatase 83 U/L (40-110); Anion Gap 16 mmol/L (10-20); BUN (Urea Nitrogen) 17 mg/dL (7.0-18.7); Bilirubin, Total 0.2 mg/dL (0.2-1.2); CK (CPK) 54 U/L (29-168); Calc. Creatinine Clearance 0 mL/min (70-130); Calcium 8.9 mg/dL (7.8-10.44); Carbon Dioxide 24 mmol/L (22-29); Chloride 104 mmol/L (98-107); Estimated GFR-MDRD 57; Globulin 3.2 g/dL (2.4-3.5); Glucose 92 mg/dL (70-105); Lipase 37 U/L (8-78); Potassium 3.9 mmol/L (3.5-5.1); Protein, Total 7.1 g/dL (6.0-8.3); Sodium 140 mmol/L (136-145)
[2020-07-09 13:28] LABS: BHCG - Serum Negative (NEGATIVE); Pregs Control Background? CLEAR/WHITE (CLR/WHITE); Pregs Control Bar Appear? YES (CONTROL BAR)
[2020-07-09 15:03] LABS: Bacteria/HPF Rare-Few HPF (None Seen); Bilirubin Negative (Negative); Blood, Urine Negative (Negative); Calcium Oxalate Crystals 1+ HPF (None Seen); Clarity Clear (Clear); Glucose, Urine (Dipstick) Normal (Negative); Ketone, Urine Negative (Negative); Leukocyte Negative Leu/uL (Negative); Mucous/LPF Rare LPF (<2+); Nitrite Negative (Negative); Protein, Urine (Dipstick) 50 mg/dL (Neg-Trace); RBC/HPF 0-3 HPF (0-3); Specific Gravity, Urine 1.027 (1.002-1.036); Squamous Epithelial 0-3 HPF (0-3); Urobilinogen Normal mg/dL (Less than 2); WBC/HPF 0-3 HPF (0-3)
--- NOTE | 2020-07-09 17:44 | CT ---
CT ANGIOGRMA THORAX WITH IV CONTRAST AND 3D RECONSTRUCTIONS: 07/09/20 HISTORY: Syncope, nausea, diarrhea. Generalized weakness and epigastric abdominal pain. COMPARISON: 08/23/16. FINDINGS: No filling defects are seen in the pulmonary arteries to suggest pulmonary embolus. Thoracic aorta is normal in caliber without evidence of an aortic dissection. No mediastinal or hilar lymphadenopathy is seen. There are minimal nodular patchy densities seen within the right upper lobe worrisome for focal areas of pneumonitis. Lungs are otherwise clear. No pleural effusion is seen. There is a hypodense lesion seen within the left hepatic lobe with a few peripheral discontinuous no dular areas of enhancement seen involving a portion of this lesion. This lesion measures 4.9 cm x 4.6 cm. This is larger in size compared to a study in 2016 but similar in size to 2019 study. Measuremen ts on prior study in 2019 were 5.1 cm x 4.3 cm. Findings are likely related to enlargement of a heman gioma. Postoperative changes are seen likely related to prior gastric sleeve procedure. No suspicious lytic or sclerotic osseous lesions are identified. IMPRESSION: 1. Small subcentimeter nodular parenchymal air space opacities in the right upper lobe which may represent focal areas of pneumonitis. 2. No CT evidence of appendicitis. 3. Hepatic hemangioma measuring 4.9 cm in greatest dimensions on this exam. This has enlarged fr om 2016 study but similar in size to 2019 study. POS: SOCRATES
--- NOTE | 2020-07-09 17:50 | CT ---
CT ABDOMEN AND PELVIS WITH IV CONTRAST: 07/09/20 HISTORY: Epigastric abdominal pain. Nausea and diarrhea. COMPARISON: 01/26/19. FINDINGS: Lung bases are clear. Postoperative changes of the stomach are again seen. There is a large hypodense lesion in the left hepatic lobe measuring 4.9 cm in maximal dimensions on this exam. This is larger in size compared to the prior study on 01/26/19 where this measured 3.8 cm in maximal dimensions. There is evidence of enhancement at the left peripheral margin of this lesion. T his is likely related to enlargement of a hemangioma. The small subcentimeter low density focus in th e posterior aspect posterior segment right hepatic lobe is again seen also demonstrating characterist ics suggestive of a small hemangioma. Calcifications are seen along the splenic margin. There is a low density lesion seen within the tail of the pancreas measuring approximately 0.8 cm and previously measured 0.7 cm. The bilateral adrenal glands, kidneys, and abdominal aorta demonstrate a normal CT appearance. IVC filter is again noted in place. Again noted are multiple peripherally calcified masses within the uterus likely related to multiple u terine fibroids. Urinary bladder is decompressed. No dilated loops of small bowel are seen. IMPRESSION: 1. Interval enlargement of large hemangioma within the central liver with stable hemangioma in t he posterior segment right hepatic lobe. 2. Previously seen inferior pole right renal calculus is not identified on this exam. 3. Uterine fibroids. 4. Stable hypodense lesion pancreatic tail measuring 8 mm. Follow-up evaluation in one year is r ecommended. 5. No acute findings in the abdomen or pelvis. POS: SOCRATES
[2020-07-10 12:25] LABS: SARS-CoV-2 MS2 Positive; SARS-CoV-2 N Gene Negative; SARS-CoV-2 S Gene Negative; SARS-CoV-2 by NAA Not Detected (NotDetected); SARS-CoV-2 orf1ab Negative
== END 2020-07-09 17:23 | disposition home or self-care (01) ==
LOC: ERS 11:51
DX: R53.1 Weakness (principal); R10.13 Epigastric pain; R42 Dizziness and giddiness; R11.0 Nausea; R19.7 Diarrhea, unspecified; D18.03 Hemangioma of intra-abdominal structures; E11.9 Type 2 diabetes mellitus without complications; I10 Essential (primary) hypertension; M79.7 Fibromyalgia; F41.9 Anxiety disorder, unspecified; Z20.828 Contact with and (suspected) exposure to other viral communicable diseases; Z86.711 Personal history of pulmonary embolism; Z86.718 Personal history of other venous thrombosis and embolism
CPT/HCPCS: 71275; 74177; 80053; 81003; 81015; 82550; 83690; 84484; 84703; 85025; 87635; 93005; 96361; 96374; J2405; Q9967; U0003

== ENCOUNTER 2021-03-23 14:08 | Outpatient (CLI) | payer BC | END 2021-03-23 14:09 | disposition home or self-care (01) | LOC: BICMAMMO 14:08 | PROVIDERS: ATTEND Specialist | DX: N60.19 Diffuse cystic mastopathy of unspecified breast (principal); N63.10 Unspecified lump in the right breast, unspecified quadrant | CPT/HCPCS: 77066; G0279 ==

== ENCOUNTER 2022-12-10 09:08 | Outpatient (CLI) | payer BC | END 2022-12-10 09:09 | disposition home or self-care (01) | LOC: BICMAMMO 09:08 | PROVIDERS: ATTEND Family Medicine | DX: D24.9 Benign neoplasm of unspecified breast (principal); N63.12 Unspecified lump in the right breast, upper inner quadrant | CPT/HCPCS: 77066; G0279 ==

== ENCOUNTER 2024-12-17 14:41 | Outpatient (CLI) | payer OTHER | END 2024-12-17 14:42 | disposition home or self-care (01) | LOC: BICRAD 14:41 | PROVIDERS: ATTEND Internal Medicine Rheumatology | DX: M25.511 Pain in right shoulder (principal); M19.011 Primary osteoarthritis, right shoulder ==